=== PATIENT | female | born 1970 | race Caucasian/White ===

== ENCOUNTER 2022-10-21 13:01 | Day surgery (SDC) | payer OTHER ==
[2022-10-21] MEDS ORDERED: Iopamidol-M 200 41% 10 ML VIAL FS ONE (13:25)
[2022-10-21 15:09] VITALS: BMI 23.3
== END 2022-10-21 15:42 | disposition home or self-care (01) ==
LOC: CSHRAD 13:01
PROVIDERS: ATTEND Physician Assistant
PROC: B02BYZZ Computerized Tomography (CT Scan) of Spinal Cord using Other Contrast (ICD-10-PCS; principal; 2022-10-21)
DX: M54.16 Radiculopathy, lumbar region (principal); G89.29 Other chronic pain; F41.9 Anxiety disorder, unspecified; J30.2 Other seasonal allergic rhinitis; E78.5 Hyperlipidemia, unspecified; G43.909 Migraine, unspecified, not intractable, without status migrainosus; Z98.890 Other specified postprocedural states; F17.200 Nicotine dependence, unspecified, uncomplicated; Z79.899 Other long term (current) drug therapy
CPT/HCPCS: 62304; 72132

== ENCOUNTER 2022-10-27 21:48 | Emergency (ER) | payer OTHER ==
[2022-10-28] MEDS ORDERED: HYDROcodone/Acetaminophen 5/325 mg Tablet ONE (00:18)
== END 2022-10-28 00:23 | disposition home or self-care (01) ==
LOC: CSHERS 21:48
DX: M54.42 Lumbago with sciatica, left side (principal); F17.210 Nicotine dependence, cigarettes, uncomplicated
CPT/HCPCS: 99283